=== PATIENT | male | born 1950 | race Asian ===

== ENCOUNTER 2020-04-09 13:21 | Emergency (ER) | payer OTHER ==
[~2020-04-09] VITALS: Ht 170.2 cm; Wt 72.6 kg
[~2020-04-09 13:21] MED LIST: ALL100T PO; ATEN-60 PO; CIPR-173 PO; LOVA10TA54 PO; TAMS0.4C36 PO
[2020-04-09 13:36] VITALS: BP 148/95
== END 2020-04-09 15:18 | disposition home or self-care (01) ==
LOC: ER 13:21
DX: S02.2XXA Fracture of nasal bones, initial encounter for closed fracture (principal); S01.21XA Laceration without foreign body of nose, initial encounter; I10 Essential (primary) hypertension; E11.9 Type 2 diabetes mellitus without complications; E78.5 Hyperlipidemia, unspecified; Z79.2 Long term (current) use of antibiotics; Z79.899 Other long term (current) drug therapy; W10.9XXA Fall (on) (from) unspecified stairs and steps, initial encounter; Y93.89 Activity, other specified; Y92.89 Other specified places as the place of occurrence of the external cause; Y99.8 Other external cause status
CPT/HCPCS: 12011; 70160

== ENCOUNTER 2020-04-19 12:22 | Emergency (ER) | payer OTHER ==
[~2020-04-19] VITALS: Ht 170.2 cm; Wt 72.6 kg
[2020-04-19 12:30] VITALS: BP 146/89
== END 2020-04-19 14:28 | disposition home or self-care (01) ==
LOC: ER 12:22
DX: S01.21XD Laceration without foreign body of nose, subsequent encounter (principal); E11.9 Type 2 diabetes mellitus without complications; E78.5 Hyperlipidemia, unspecified; I10 Essential (primary) hypertension; X58.XXXD Exposure to other specified factors, subsequent encounter